=== PATIENT | male | born 1970 | race Caucasian/White ===

== ENCOUNTER 2016-08-19 11:33 | Emergency (ER) | payer OTHER ==
[~2016-08-19] VITALS: Ht 190.5 cm; Wt 136.0 kg
[~2016-08-19 11:33] MED LIST: AMOXICILLIN500 MG PO; DOXYCYCL HYC100 MG PO; LISINOPRIL20 MG PO
[2016-08-19] MEDS ORDERED: MOTRIN800 MG PO (12:28)
[2016-08-19 12:30] VITALS: BP 129/84
== END 2016-08-19 12:30 | disposition home or self-care (01) | DRG 563 ==
LOC: ED 11:33
PROC: 2W3MX1Z Immobilization of Left Lower Extremity using Splint (ICD-10-PCS; principal; 2016-08-19)
DX: S92.425A Nondisplaced fracture of distal phalanx of left great toe, initial encounter for closed fracture (principal); R22.42 Localized swelling, mass and lump, left lower limb; W22.8XXA Striking against or struck by other objects, initial encounter; Y93.89 Activity, other specified; Y92.008 Other place in unspecified non-institutional (private) residence as the place of occurrence of the external cause

== ENCOUNTER 2017-01-22 07:03 | Emergency (ER) | payer OTHER ==
[~2017-01-22] VITALS: Ht 190.5 cm; Wt 120.0 kg
[~2017-01-22 07:03] MED LIST changes: +MOTRIN800 MG PO
[2017-01-22] MEDS ORDERED: DILAUDID8 MG PO (07:12)
[2017-01-22] MEDS ORDERED: ZITHROMAX250 MG PO (07:17)
[2017-01-22] MEDS ORDERED: PROVENTIL HFA IN (07:17)
[2017-01-22 07:24] VITALS: BP 186/96
== END 2017-01-22 07:31 | disposition home or self-care (01) | DRG 203 ==
LOC: ED 07:03
DX: J40 Bronchitis, not specified as acute or chronic (principal); R09.81 Nasal congestion; R05 Cough

== ENCOUNTER 2018-05-30 11:55 | Emergency (ER) | payer MEDICAID ==
[~2018-05-30] VITALS: Ht 190.5 cm; Wt 130.0 kg
[~2018-05-30 11:55] MED LIST changes: +DILAUDID8 MG PO; +PROVENTIL HFA IN; +ZITHROMAX250 MG PO
[2018-05-30] MEDS ORDERED: MEDDOSEPAK PO (12:34)
[2018-05-30 13:15] VITALS: BP 118/83
== END 2018-05-30 13:15 | disposition home or self-care (01) ==
LOC: ED 11:55
DX: M54.41 Lumbago with sciatica, right side (principal)

== ENCOUNTER 2018-12-19 08:07 | Emergency (ER) | payer OTHER, MEDICAID ==
[~2018-12-19] VITALS: Ht 190.5 cm; Wt 145.0 kg
[~2018-12-19 08:07] MED LIST changes: +MEDDOSEPAK PO
[2018-12-19] MEDS ORDERED: CYCLOBENZAPR5 MG PO (08:58)
[2018-12-19 09:11] VITALS: BP 154/82
== END 2018-12-19 09:14 | disposition home or self-care (01) | DRG 556 ==
LOC: ED 08:07
DX: M62.838 Other muscle spasm (principal); I10 Essential (primary) hypertension; V43.53XA Car driver injured in collision with pick-up truck in traffic accident, initial encounter

== ENCOUNTER 2019-08-25 22:36 | Emergency (ER) | payer OTHER, MEDICAID ==
[2019-08-25 22:36] VITALS: BP 156/86
[~2019-08-25 22:36] MED LIST changes: +CYCLOBENZAPR5 MG PO
[2019-08-25] MEDS ORDERED: MEDICAL MARIJUANA PO (22:57)
== END 2019-08-25 23:04 | disposition left against medical advice (07) | DRG 556 ==
LOC: ED 22:36
DX: M25.511 Pain in right shoulder (principal); S00.411A Abrasion of right ear, initial encounter; I10 Essential (primary) hypertension; V48.5XXA Car driver injured in noncollision transport accident in traffic accident, initial encounter; Z91.19 Patient's noncompliance with other medical treatment and regimen

== ENCOUNTER 2023-03-27 07:30 | Emergency (ER) | payer SELFPAY ==
[~2023-03-27] VITALS: Ht 195.6 cm; Wt 145.0 kg
[2023-03-27] VITALS (10 sets, daily range): BP systolic 135–191; BP diastolic 70–122
[~2023-03-27 07:30] MED LIST changes: +MEDICAL MARIJUANA PO
[2023-03-27 08:02] LABS: BASO% 0.4 % (0-3); EOS% 1.1 % (0-8); HEMATOCRIT 46.3 % (39.0-50.0); HEMOGLOBIN 14.9 g/dl (14.0-18.0); IMMATURE GRANULOCYTES 0.1 % (0.0-5.0); MEAN CELL VOLUME 94.5 fL CALC (80.0-100.0); MEAN CORPUSCULAR HGB 30.4 pG CALC (26.0-32.0); MEAN CORPUSCULAR HGB CONC 32.2 g/dL CAL (32.0-36.0); NEUT# 5.35 thou/uL (1.82-7.42); NEUT% 65.4 % (42-76); RED BLOOD COUNT 4.9 mill/uL (4.70-6.10)
[2023-03-27 08:24] LABS: ALBUMIN 4.2 g/dL (3.2-5.0); ALKALINE PHOSPHATASE 88 u/l (38-126); ANION GAP 14 (6-22 (CALC)); BILIRUBIN, TOTAL 0.4 mg/dL (0.2-1.3); BUN 15 mg/dL (9-20); BUN/CREATININE RATIO 20 (12-20 (CALC)); CARBON DIOXIDE 21 mmol/l (22-30); CHLORIDE 106 mmol/l (95-108); CREATININE 0.8 mg/dL (0.7-1.3); GFR FOR AFR.AMER. > 60 ML/MIN (>=60 (CALC)); GFR OTHER RACES > 60 ML/MIN (>=60 (CALC)); POTASSIUM 4.1 mmol/l (3.5-5.1); SGOT/AST 29 u/l (17-59); SODIUM 138 mmol/l (137-146); TOTAL PROTEIN 7.6 g/dL (6.3-8.2)
[2023-03-27] MEDS ORDERED: PREDNISONE20 MG PO (09:12)
[2023-03-27] MEDS ORDERED: NAPROXEN500 MG PO (09:12)
[2023-03-27] MEDS ORDERED: VALACYCLOVIR HYD1 GM PO (09:12)
== END 2023-03-27 09:26 | disposition home or self-care (01) | DRG 74 ==
LOC: ED 07:30
PROVIDERS: Family Medicine
DX: G51.0 Bell's palsy (principal)